=== PATIENT | male | born 1960 | race Caucasian/White ===

== ENCOUNTER 2022-03-14 11:04 | Day surgery (SDC) | payer OTHER ==
[2022-03-09 10:06] LABS: BASOPHILS # (AUTO) 0.1 X10'3 (0-0.2); BASOPHILS % (AUTO) 0.7 % (0-1); EOSINOPHILS # (AUTO) 0.1 X10'3 (0-0.9); EOSINOPHILS % (AUTO) 2.1 % (0-6); HEMATOCRIT 44.7 % (42.0-52.0); HEMOGLOBIN 15.2 g/dl (14.0-17.9); LYMPHOCYTES # (AUTO) 1.6 X10'3 (1.1-4.8); LYMPHOCYTES % (AUTO) 22.7 % (21-51); MEAN CORPUSCULAR HEMOGLOBIN 33.6 PG (27.0-31.0); MEAN CORPUSCULAR VOLUME 98.7 FL (78-98); MEAN PLATELET VOLUME 8.2 FL (7.4-10.4); MONOCYTES # (AUTO) 0.8 X10'3 (0-0.9); MONOCYTES % (AUTO) 11.3 % (2-12); NEUTROPHILS # (AUTO) 4.4 X10'3 (1.8-7.7); NEUTROPHILS % (AUTO) 63.2 % (42-75); PLATELET COUNT 135 X10'3 (140-440); RED BLOOD COUNT 4.52 X10'6 (4.70-6.10); RED CELL DISTRIBUTION WIDTH 13.6 % (11.5-14.5); WHITE BLOOD COUNT 6.9 X10'3 (4.5-11.0)
[2022-03-09 10:08] LABS: APTT 27 SECONDS (22-32)
[2022-03-09 10:10] LABS: ALBUMIN 3.7 G/DL (3.4-5.0); ANION GAP 6 (8-16); BLOOD UREA NITROGEN 40 MG/DL (7-18); BUN/CREATININE RATIO 27.4 (5.4-32.0); CALCIUM 10.7 MG/DL (8.5-10.1); CHLORIDE 95 MMOL/L (99-107); CHOL/HDL RATIO 2.6 (0.00-4.99); CHOLESTEROL 187 MG/DL (0-200); CREATININE 1.46 MG/DL (0.60-1.10); GLUCOSE 219 MG/DL (70-104); HDL CHOLESTEROL 71 MG/DL (35-60); LDL CHOLESTEROL 96 MG/DL (50-100); POTASSIUM 4.3 MMOL/L (3.5-5.1); SODIUM 132 MMOL/L (135-145); TOTAL CARBON DIOXIDE 31.3 MMOL/L (24-32); TRIGLYCERIDES 151 MG/DL (20-135); eGFR 49 ML/MIN
[~2022-03-14] VITALS: Ht 177.8 cm; Wt 119.1 kg
[2022-03-14] VITALS (7 sets, daily range): BP systolic 101–128; BP diastolic 59–73
[2022-03-14] MEDS ORDERED: normal saline 1,000 ML IV SCH (11:25)
[2022-03-14] MEDS ORDERED: LORazepam 0.5 MG tablet PO PRN (11:25)
[2022-03-14] MEDS ORDERED: diphenhydrAMINE 25mg capsule PO PRN (11:25)
[2022-03-14] MEDS ORDERED: SEMA0.25 INJ (11:33)
[2022-03-14] MEDS ORDERED: FAMO40TA7 PO (11:33)
[2022-03-14] MEDS ORDERED: ATOR10TA87 PO (11:33)
[2022-03-14] MEDS ORDERED: METO-477 PO (11:33)
[2022-03-14] MEDS ORDERED: DOCO1CAP6 PO (11:33)
[2022-03-14] MEDS ORDERED: LOSA1TAB39 PO (11:33)
[2022-03-14] MEDS ORDERED: CETI-194 PO (11:33)
[2022-03-14] MEDS ORDERED: MULT-1085 PO (11:33)
[2022-03-14] MEDS ORDERED: BUDE10.2 INH (11:33)
[2022-03-14] MEDS ORDERED: EMPA10TA PO (11:33)
[2022-03-14] MEDS ORDERED: midazolam 1 mg/ML 2ml injection ONE (12:18)
[2022-03-14] MEDS ORDERED: verapamil 2.5 mg/ml inj IV ONE (12:18)
[2022-03-14] MEDS ORDERED: LIDOcaine 1% (10mg/ml) 2ml vial ONE (12:18)
[2022-03-14] MEDS ORDERED: fentaNYL/PF 50MCG/1 ML 2ML syringe ONE (12:18)
[2022-03-14] MEDS ORDERED: heparin 1,000unit/ml 10ml vial 10 ML ONE (12:18)
[2022-03-14] MEDS ORDERED: nitroGLYCERIN-Tridil 50MG/D5W 250 ML IV ONE (12:19)
[2022-03-14] MEDS ORDERED: iohexol 350MG/ML 100ml bottle IV ONE (12:19)
[2022-03-14] MEDS ORDERED: HYDROcodone/acetaminophen 5mg/325mg tablet PO PRN (14:25)
[2022-03-14] MEDS ORDERED: HYDROcodone/acetaminophen 10/325mg tab PO PRN (14:25)
== END 2022-03-14 16:00 | disposition home or self-care (01) ==
LOC: SSTAY O 11:04
PROVIDERS: ATTEND Student in an Organized Health Care Education/Training Program
DX: R94.39 Abnormal result of other cardiovascular function study (principal); E11.9 Type 2 diabetes mellitus without complications; I10 Essential (primary) hypertension; I25.10 Atherosclerotic heart disease of native coronary artery without angina pectoris; E78.5 Hyperlipidemia, unspecified; I44.7 Left bundle-branch block, unspecified; J44.9 Chronic obstructive pulmonary disease, unspecified; K21.9 Gastro-esophageal reflux disease without esophagitis; F17.220 Nicotine dependence, chewing tobacco, uncomplicated; Z79.84 Long term (current) use of oral hypoglycemic drugs; Z79.899 Other long term (current) drug therapy; Z79.01 Long term (current) use of anticoagulants; Z79.82 Long term (current) use of aspirin
CPT/HCPCS: 36415; 80048; 80061; 82948; 85025; 85610; 85730; 93005; 93458; 99152; A6258; C1769; C1894; J1644; J2250; J3010; J3490; J7030; Q0163; Q9967; A6402